=== PATIENT | male | born 1995 | race Two or more races ===

== ENCOUNTER 2022-03-05 18:47 | Emergency (ER) | payer OTHER ==
[~2022-03-05] VITALS: Ht 152.4 cm; Wt 79.4 kg
[2022-03-05] MEDS ORDERED: CIPRO500 MG PO (20:40)
[2022-03-05] MEDS ORDERED: KETO10TA2 PO (20:40)
== END 2022-03-05 21:28 | disposition home or self-care (01) ==
LOC: ER 18:47
DX: S71.111A Laceration without foreign body, right thigh, initial encounter (principal); V29.9XXA Motorcycle rider (driver) (passenger) injured in unspecified traffic accident, initial encounter; Y93.89 Activity, other specified; Y92.413 State road as the place of occurrence of the external cause; Y99.9 Unspecified external cause status

== ENCOUNTER → 2022-03-12 | Emergency (ER) | payer OTHER ==
[~2022-03-12] VITALS: Ht 180.3 cm; Wt 79.4 kg
[~2022-03-12] MED LIST: CIPRO500 MG PO; KETO10TA2 PO
== END | disposition home or self-care (01) ==
LOC: ER 08:08
DX: Z48.02 Encounter for removal of sutures (principal)